=== PATIENT | male | born 1970 | race Caucasian/White ===

== ENCOUNTER 2018-12-01 12:58 | Emergency (ER) | payer SELFPAY ==
[2018-12-01] MEDS ORDERED: NS 0.9% 1000 ML** 2,000 ML IV ONE (14:52)
--- NOTE | 2018-12-01 14:52 | ED ---
Abdominal Pain/Male - HPI Summary HPI Summary: This patient is a 48 year old M presenting to ED with a chief complaint of diarrhea and abdominal cramping since one week ago. Patient had diarrhea 12x today and many times yesterday too. Patient has not eaten today. The last food he had was a hot dog last night. Patient is not on antibiotics. Patient has woken up a few times sweating. Patient is not taking any pain medication. The patient rates the pain 6/10 in severity. Symptoms aggravated by nothing. Symptoms alleviated by nothing. Patient reports bloody stool. Patient denies fever, vomiting. - History of Current Complaint Chief Complaint: EDNauseaVomitDiarrh Stated Complaint: DHIARREA 7 DAYS/CRAMPING PER PT Time Seen by Provider: 12/01/18 14:45 Hx Obtained From: Patient Onset/Duration: Lasting Weeks - 1 week ago, Still Present Timing: Constant Severity Initially: Moderate Severity Currently: Moderate Pain Intensity: 6 Pain Scale Used: 0-10 Numeric Character: Cramping Aggravating Factor(s): Nothing Alleviating Factor(s): Nothing Associated Signs And Symptoms: Positive: Blood in Stool, Diarrhea. Negative: Fever, Vomiting - Allergies/Home Medications Allergies/Adverse Reactions: Allergies Allergy/AdvReac Type Severity Reaction Status Date / Time ciprofloxacin [From Cipro] Allergy Hives Verified 12/01/18 13:01 PMH/Surg Hx/FS Hx/Imm Hx Endocrine/Hematology History: Denies: Hx Diabetes Cardiovascular History: Denies: Hx Hypertension GI History: Denies: Hx Gastroesophageal Reflux Disease - Surgical History Surgery Procedure, Year, and Place: None Infectious Disease History: No Infectious Disease History: Denies: Traveled Outside the [place] in Last 30 Days - Family History Known Family History: Positive: Cardiac Disease, Hypertension, Diabetes, Other - Cancer - Social History Alcohol Use: Rare Hx Substance Use: No Hx Tobacco Use: No Smoking Status (MU): Never Smoked Tobacco Review of Systems Negative: Fever Positive: Abdominal Pain - Cramping, Diarrhea - Bloody stool. Negative: Vomiting All Other Systems Reviewed And Are Negative: Yes Physical Exam - Summary Physical Exam Summary: Appearance: Well appearing, no pain distress Skin: warm, dry, reflects adequate perfusion Head/face: normal Eyes: EOMI, MELVA ENT: dry mucus membranes Neck: supple, non-tender Respiratory: CTA, breath sounds present Cardiovascular: RRR, pulses symmetrical Abdomen: non-tender, soft Musculoskeletal: normal, strength/ROM intact Neuro: normal, sensory motor intact, A&Ox3 Triage Information Reviewed: Yes Vital Signs On Initial Exam: Initial Vitals Temp Pulse Resp BP Pulse Ox 97.1 F 109 20 150/104 95 12/01/18 13:02 12/01/18 13:02 12/01/18 13:02 12/01/18 13:02 12/01/18 13:02 Vital Signs Reviewed: Yes Diagnostics - Vital Signs Vital Signs Temp Pulse Resp BP Pulse Ox 12/01/18 13:02 97.1 F 109 20 150/104 95 - Laboratory Result Diagrams: 12/01/18 14:53 12/01/18 14:53 Lab Statement: Any lab studies that have been ordered have been reviewed, and results considered in the medical decision making process. - CT A/P CT Interpretation Completed By: Radiologist Summary of CT Findings: Diverticulitis of the sigmoid colon. No evidence of pericolonic fluid collections or peridiverticular abscess is noted. Dr. George has reviewed this radiology report. Re-Evaluation - Re-Evaluation First Eval Re-Evaluation Time: 18:06 Comment: Discussed results with patient. Patient reports having gone to the bathroom multiple times while in the ER. Patient will be discharged home with dx of diverticulitis. Patient understands and agrees with this plan. Abdominal Pain Male Course/Dx - Course Course Of Treatment: This patient is a 48 year old M presenting to ED with a chief complaint of diarrhea and abdominal cramping since one week ago. In the ED course, patient received fluids. Blood work and stool specimen obtained. CT A /P revealed diverticulitis of the sigmoid colon. No evidence of pericolonic fluid collections or peridiverticular abscess is noted. Thus, I gave the patient Cipro and Zosyn. Patient will be discharged home with dx of diverticulitis. Patient understands and agrees with this plan. - Diagnoses Differential Diagnosis/HQI/PQRI: Bowel Obstruction, Constipation, Diverticulitis , Renal Colic, Urinary Tract Infection Provider Diagnoses: Diverticulitis of sigmoid colon Discharge - Sign-Out/Discharge Documenting (check all that apply): Patient Departure - Discharge Patient Received Moderate/Deep Sedation with Procedure: No - Discharge Plan Condition: Stable Disposition: HOME Prescriptions: Amoxicillin/Clavulanate TAB* [Augmentin TAB 875*] 875 mg PO BID #20 tab Ondansetron ODT TAB* [Zofran 4 MG Odt TAB*] 4 mg PO Q8H PRN #20 tab.odt MDD 3 PRN Reason: Nausea Patient Education Materials: Diverticulitis (ED) Referrals: Martinez FARR,Peyman Peterson [Primary Care Provider] - 3 Days Additional Instructions: Follow up with your primary care provider in three days. RETURN TO THE ER FOR WORSENING OR CHANGING SYMPTOMS. - Billing Disposition and Condition Condition: STABLE Disposition: Home - Attestation Statements Document Initiated by Kelbyibkeya: Yes Documenting Scribe: Terrence Duarte Provider For Whom Maia is Documenting (Include Credential): Conrad George MD Scribe Attestation: Terrence Flores, scribed for Conrad George MD on 12/01/18 at 1844. Scribe Documentation Reviewed: Yes Provider Attestation: The documentation as recorded by the Terrence sims accurately reflects the service I personally performed and the decisions made by Conrad frausto MD Status of Scribe Document: Viewed
[2018-12-01 15:07] LABS: ABS Basophils 0.1 10^3/ul (0-0.2); ABS Eosinophils 0.1 10^3/ul (0-0.6); ABS Lymphocytes 2.6 10^3/ul (1.0-4.8); ABS Neutrophils 8.2 10^3/ul (1.5-7.7); Eosinophil % 1.1 %; Hematocrit 41 % (42-52); Hemoglobin 14.3 g/dL (14.0-18.0); Lymphocyte % 21.7 %; Mean Corpuscular HGB Conc 35 g/dL (31-36); Mean Corpuscular Hemoglobin 34 pg (27-31); Mean Corpuscular Volume 98 fL (80-94); Mean Platelet Volume 8.1 fL (7.4-10.4); Platelet Count 230 10^3/uL (150-450); Red Blood Count 4.17 10^6 /uL (4.18-5.48); Red Cell Distribution Width 14 % (10-15); White Blood Count 11.9 10^3/uL (3.5-10.8)
[2018-12-01 15:20] LABS: Albumin 4.2 g/dL (3.2-5.2); Albumin/Globulin Ratio 1.2 (1-3); BUN/Creatinine Ratio 15.1 (8-20); C Reactive Protein 52.67 mg/L (<8.01); Calcium 9.4 mg/dL (8.6-10.3); EGFR African American 115.3 (>60); EGFR Non-African American 95.3 (>60); Globulin 3.5 g/dL (2-4); Potassium 3.8 mmol/L (3.5-5.0); Total Bilirubin 0.7 mg/dL (0.2-1.0); Total Protein 7.7 g/dL (6.4-8.9)
[2018-12-01] MEDS ORDERED: Iohexol 300* (CONTRAST) 10 ML SDV IV ONE (16:53)
[2018-12-01] MEDS ORDERED: Ciprofloxacin TAB* 500 MG PO ONE (18:15)
[2018-12-01] MEDS ORDERED: ED Piperacillin/Tazobac 3.375 3.375 GM/100 ML PREMIX.SET IVPB ONE (18:17)
[2018-12-01] MEDS ORDERED: Ondansetron INJ* 2 MG/ML VIAL IV ONE (18:36)
[2018-12-01] MEDS ORDERED: TAZOBAC ADVAN IVPB ONE ×2 (19:00)
[2018-12-01] MEDS ORDERED: NS 0.9% IVPB ONE ×2 (19:00)
[2018-12-01] MEDS ORDERED: PIPERACILLIN IVPB ONE ×2 (19:00)
[2018-12-01 19:21] VITALS: BP 167/115
== END 2018-12-01 19:19 | disposition home or self-care (01) ==
LOC: ED 12:58
DX: K57.32 Diverticulitis of large intestine without perforation or abscess without bleeding (principal); Z88.3 Allergy status to other anti-infective agents
CPT/HCPCS: 36415; 74177; 80053; 83605; 83690; 85025; 86140; 87493; 96360; 96361; 99284; J2405; J2543; Q9967